=== PATIENT | male | born 1995 | race Hispanic/Latino ===

== ENCOUNTER 2019-04-20 15:51 | Emergency (ER) | payer OTHER ==
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
[2019-04-20] MEDS ORDERED: LIDOCAINE 1% W/EPI 1:100,000 MDV 50 ML VIAL ONE (17:50)
[2019-04-20] MEDS ORDERED: ACETAMINOPHEN 325 MG TABLET ONE (17:50)
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
[2019-04-20] MEDS ORDERED: Mastisol Adhesive Liq ONE (18:23)
[2019-04-20] MEDS ORDERED: TETANUS & DIPHTHERIA TOX,ADULT 0.5 ML VIAL ONE (18:32)
== END 2019-04-20 18:29 | disposition home or self-care (01) ==
LOC: ER 15:51
PROC: 08QPXZZ Repair Left Upper Eyelid, External Approach (ICD-10-PCS; principal; 2019-04-20)
DX: S01.112A Laceration without foreign body of left eyelid and periocular area, initial encounter (principal); S00.93XA Contusion of unspecified part of head, initial encounter; Y04.2XXA Assault by strike against or bumped into by another person, initial encounter; Y93.9 Activity, unspecified; Y92.149 Unspecified place in prison as the place of occurrence of the external cause; Z23 Encounter for immunization
CPT/HCPCS: 70450; 70486; 72125; 76377; 90471; 90714; 99284